=== PATIENT | female | born 1995 | race Caucasian/White ===

== ENCOUNTER 2018-12-24 15:46 | Inpatient (IN) ==
[2018-12-24] MEDS ORDERED: OXYTOCIN 20 UNITS in RINGER'S SOLUTION,LACTATED 1,000 ML IV ONE (16:18)
[2018-12-24] MEDS ORDERED: ceFAZolin SODIUM/DEXTROSE,ISO 2 GM/50 ML BAG IV ONE (16:18)
[2018-12-24] MEDS ORDERED: CALCIUM GLUCONATE 4.65 MEQ/10 ML VIAL IV PRN ×2 (16:18→19:00)
[2018-12-24] MEDS: RINGER'S SOLUTION,LACTATED 1,000 ML IV PRN ×2 (16:20→17:20)
[2018-12-24] MEDS ORDERED: LABETALOL HCL 5 MG/ML VIAL IV ONE ×2 (16:22→19:30)
[2018-12-24] MEDS ORDERED: LABETALOL HCL 5 MG/ML SYRINGE IV ONE (16:24)
[2018-12-24] MEDS: MAGNESIUM SULFATE IN WATER 50 ML, MAGNESIUM SULFATE IN WATER 50 ML IV ONE ×4 (16:29→16:53)
--- NOTE | 2018-12-24 16:52 | HP ---
Chief Complaint - Chief Complaint Date of Service: 12/24/18 Time of Service: 16:35 Chief Complaint: elevated BP History of Present Illness: 23 yo at 36 5/7 weeks admitted to L&D for primary c/s due to breech presentation and severe preeclampsia. Patient has had complaints of increased swelling, headaches, and epigastric pain the past couple days with normal BPs. Today at her OB office visit she no longer had a ABDULLAHI or epigastric pain, but did have elevated BPs. She was sent to L&D for further evaluation and tx. Her BPs here are in severe range and her Prot/Cr ratio was 3402. This complicated by breech presentation and induced HTN with severe features. Rh positive Rubella immune GBS negative Medical History (Last Reviewed 12/24/18 @ 16:44 by Evaristo Wong DO) No pertinent past medical history Surgical History: Surgical History (Last Reviewed 12/24/18 @ 16:44 by Evaristo Wong DO) No pertinent past surgical history Family History: Family History (Last Reviewed 12/24/18 @ 16:44 by Evaristo Wong DO) Aunt Cancer Bone cancer Father Hypertension Bipolar disorder Grandfather Heart disease Paternal Grandmother Cancer colon cancer Grandfather Cancer Maternal-throat cancer Mother Hyperlipemia Social History: Preferred Language Telugu Smoking Status Former smoker (Last Updated 12/24/18 @ 15:46 by Evaristo Wong DO) No Social History Section defined Review Of Systems (GEN) - Review of Systems Generalized/Overall Review: Present: No Symptoms Reported EENTM: Present: No Symptoms Reported Respiratory: Present: No Symptoms Reported Cardiac: Present: No Symptoms Reported Abdominal: Present: No Symptoms Reported Genitourinary: Present: No Symptoms Reported Musculoskeletal: Present: No Symptoms Reported Neurological: Present: No Symptoms Reported Skin: Present: No Symptoms Reported Endocrine: Present: No Symptoms Reported Allergies/Adverse Reactions: Allergies Allergy/AdvReac Type Severity Reaction Status Date / Time No Known Allergies Allergy Verified 12/24/18 16:02 Home Medications: HOME MEDICATIONS vitamin,calcium,srzdfhmg-tpal-scdsq acid tablet 1 tab PO DAILY 06/05/18 [Last Taken Unknown] calcium carbonate 500 mg calcium (1,250 mg) chewable tablet 500 mg PO TID tab 09/17/18 [Last Taken Unknown] ranitidine 150 mg tablet 150 mg PO DAILY 10/22/18 [Last Taken Unknown] Exam - Exam Vital Signs: Vital Signs - Last Taken Temp 36.9 C 12/24/18 16:12 Pulse 67 12/24/18 16:30 Resp 20 12/24/18 16:12 BP 160/102 H 12/24/18 16:30 Pulse Ox 100 12/24/18 16:12 Constitutional: Present: Alert, Oriented x3, Cooperative, No distress ENT Exam: Present: hearing grossly normal Breasts: Present: Exam deferred Respiratory: Present: lungs clear, no respiratory distress Cardiovascular/Chest: Present: regular rate, rhythm Abdomen: Present: soft, nontender, nondistended, no rebound tenderness, other - gravid /Rectal: Present: Exam deferred Extremity: Present: no calf tenderness, lower extremity edema Skin Exam: Present: normal color, warm/dry, no cyanosis Neurologic: Present: alert, normal mood/affect, oriented x 3, other - DTR 3+/4, 2 beat clonus Appearance: Present: appropriate appearance, appropriate insight, no memory impairment Eye contact: Present: cooperative, good eye contact, normal speech Thoughts: Present: normal thought pattern Diagnostic Studies: See computer. Unable to import into note. Assessment/Plan - Assessment/Plan (1) Breech presentation, no version Assessment: Admit for control of BP, seizure prophylaxis, and primary c/s. R/b/a to c/s discussed with patient and spouse. All questions answered. Will proceed with surgery. Problem: Acute Qualifiers: Fetus number: single or unspecified fetus Qualified Code(s): O32.1XX0 - Maternal care for breech presentation, not applicable or unspecified (2) Preeclampsia, severe Problem: Acute Qualifiers: Trimester: third trimester Qualified Code(s): O14.13 - Severe pre- eclampsia, third trimester
--- NOTE | 2018-12-24 17:03 | ANES ---
Anesthesia Pre Procedure Eval Vitals/Labs: Last Vital Signs Temp 36.9 C 12/24/18 16:12 Pulse 67 12/24/18 16:30 Resp 20 12/24/18 16:12 BP 160/102 H 12/24/18 16:30 Pulse Ox 100 12/24/18 16:12 HOME MEDICATIONS vitamin,calcium,zcaplnla-vece-dsthm acid tablet 1 tab PO DAILY 06/05/18 [Last Taken Unknown] calcium carbonate 500 mg calcium (1,250 mg) chewable tablet 500 mg PO TID tab 09/17/18 [Last Taken Unknown] ranitidine 150 mg tablet 150 mg PO DAILY 10/22/18 [Last Taken Unknown] Allergies/Adverse Reactions: Allergies Allergy/AdvReac Type Severity Reaction Status Date / Time No Known Allergies Allergy Verified 12/24/18 16:02 - Planned Procedure Planned Procedure: C/S Medication List Reviewed:: Yes Allergies Verified: Yes Medical History (Last Reviewed 12/24/18 @ 17:01 by Ascencion Elder CRNA) No pertinent past medical history Surgical History (Last Reviewed 12/24/18 @ 17:01 by Ascencion Elder CRNA) No pertinent past surgical history Family History (Last Reviewed 12/24/18 @ 17:01 by Ascencion Elder CRNA) Aunt Cancer Bone cancer Father Hypertension Bipolar disorder Grandfather Heart disease Paternal Grandmother Cancer colon cancer Grandfather Cancer Maternal-throat cancer Mother Hyperlipemia - Family Anesthesia History Family History:: no untoward family reactions to anesthesia, no familial bleeding tendencies, no family history of clotting disorders, no family history of premature - Airway/Neck/Teeth Within Normal Limits:: Yes Teeth Condition: intact Mallampatti Score: 2 Thyromental (T-M) distance: > 6 cm Mandibulo Hyoid distance: > 3 cm - Respiratory Respiratory Physical: lungs clear Smoking Status: Former smoker Discussed smoking cessation including day of surgery: No Sleep Apnea currently treated: No Sleep Apnea by current assessment: No Discussed Risks/Treatment of VERNON: No - Cardiovascular Tolerate Activity: Good Heart Sounds: S1 & S2, Regular - Anesthesia Assessment and Plan ASA Class: PS, II Anesthesia Type Plan: Block - Bilateral ultrasound guided TAP blocks for postop analgesia, Spinal
[2018-12-24] MEDS: MAGNESIUM SULFATE IN WATER 1,000 ML IV SCH ×3 (17:11→23:52)
[2018-12-24 18:37] LABS: Cocaine Ur Negative (NEGATIVE); Urine Barbiturate Negative (NEGATIVE); Urine Benzodiazepines Negative (NEGATIVE); Urine Opiates Negative (NEGATIVE); Urine PCP Negative (NEGATIVE); Urine THC Negative (NEGATIVE)
--- NOTE | 2018-12-24 18:42 | OR ---
Operative Report - Dictated Report Narrative: Indication: 23-year-old 1 para 0 at 36 5/7 weeks in breech presentation with severe preeclampsia declining external cephalic version. Status: Planned Pre Operative Diagnosis: 36 5/7 week intrauterine . Breech presentation. Severe preeclampsia. Post Operative Diagnosis: Same. Procedure Preformed: Primary Low Transverse Section Surgeon: Arthur Wong DO Orthopedic Physician Assistant: OR Staff Anesthesia: Spinal ,TAP block Estimated Blood Loss: 300 mL Urine Output: 250 mL Fluids Given: 900 mL Drains: Saez to gravity Surgical Complications: None Specimens: Placenta to pathology Findings: Male born at 1742 on 12/24/2016 with Apgars 9 and 9, weighing 2292 g in gato breech presentation. Normal uterus, tubes, ovaries. Technique: The patient was taken to the operating room and placed in dorsal supine position with a left lateral tilt. After adequate spinal anesthesia, saez catheter insertion,SCDs placed, and 2 g of Ancef given preoperatively, the abdominal cavity was entered via a modified Magdiel-Hood incision. Two rolled laps were placed in the pericolic gutters on either side of the uterus. A transverse incision was made in the lower uterine segment and extended laterally and upwardly with digital traction. Clear fluid was noted upon amniotomy. The infant's buttocks was delivered with gentle traction and rotation clockwise and counterclockwise to deliver each arm. Keeping the head flexed, it was delivered through the hysterotomy with some mild difficulty. The cord was clamped and cut and infant was handed off to awaiting entry level mechanical engineer. The placenta was allowed to deliver spontaneously. The uterus was cleared of clot and debris. Uterine incision was closed with 0 Vicryl using a running stitch. A second imbricating layer was placed. Excellent hemostasis was noted. Rolled laps were removed f rom the abdominal cavitiy. The peritoneum was closed with a running 3-0 Monocryl. The same suture was used to approximate the rectus and pyramidalis muscles. The fascia was closed with a running 0 Vicryl. The subcutaneous layer was closed with a running 3-0 Monocryl. The same suture was used to approximate the subdermal layer. The skin was closed with a running 4-0 Monocryl and Dermabond. Sponge, lap, needle, and instrument count were correct x 2. Disposition: The patient was transferred to post anesthesia care unit in good condition History for MU Definition: * The number of deliveries resulting in a live the patient experienced prior to current hospitalization * The previous delivery of live twins or any live multiple gestation is cons idered one live event. *If primagravida or nulliparous is documented select zero for the number of previous live births. Live Events: 0
--- NOTE | 2018-12-24 18:54 | ANES ---
Post Anesthesia Discharge - Transfer of Care Transfer of Care handoff given to nurse: Yes - Discharge from PACU Discharge from PACU when meets criteria: Yes - Discharge to ASU Discharge to ASU-no complications/pt stable: Yes
--- NOTE | 2018-12-24 18:58 | ANES ---
Anesthesia Procedure Note Procedure Note: ANESTHESIA PROCEDURE NOTE Date of Procedure: 12/24/2018. Time of procedure: 1835. Performed by: Ascencion Elder CRNA Vice President Marketing & Development: None. Preprocedure diagnosis:. Post procedure diagnosis: Same. Procedure: Bilateral ultrasound-guided transversus abdominis plane block for postop analgesia. Indications: The patient is a 23 -year-old female post section. Findings: See below. Details of the procedure: ChloraPrep was used on the patient's abdomen and the procedure was performed under sterile technique. The right abdominal fascial layer between the internal oblique muscle and the transversus abdominis muscles was identified under ultrasound guidance. A 21-gauge 4 inch block needle was inserted under ultrasound guidance to the target fascial plane. 15 mL's of 0.5% bupivacaine plus epinephrine 1:200,000 was injected after negative aspiration for blood. The needle was removed intact and the procedure was then repeated at the left side. No complications were noted. The images were retained in the hospital medical database . EBL: Minimal. Fluids: N/A. Specimen: N/A. Post procedure condition: The patient tolerated the procedure well. No complications were noted. Thank you for this consultation. Ascencion Elder CRNA
--- NOTE | 2018-12-24 18:58 | ANES ---
Post Anesthesia Assessment - Vital Signs Vitals: Last Vital Signs Temp 36.6 C 12/24/18 18:30 Pulse 62 12/24/18 18:45 Resp 12 12/24/18 18:45 BP 97/72 12/24/18 18:45 Pulse Ox 100 12/24/18 18:45 Airway Patency: Normal - Mental Status Level Of Consciousness: Awake - Pain Level Pain Score: 0 - N/V Assessment Nausea/Vomiting Presence: None Dehydration:: No
[2018-12-24] MEDS ORDERED: BISACODYL 10 MG SUPP.RECT RC PRN (19:00)
[2018-12-24] MEDS ORDERED: oxyCODONE HCL/ACETAMINOPHEN 1 TAB TABLET PO PRN (19:00)
[2018-12-24] MEDS ORDERED: SENNOSIDES 8.6 MG TABLET PO PRN (19:00)
[2018-12-24] MEDS ORDERED: ONDANSETRON HCL/PF 2 MG/ML VIAL IV PRN (19:00)
[2018-12-24] MEDS ORDERED: SIMETHICONE 80 MG TAB.CHEW PO PRN (19:00)
[2018-12-24] MEDS: LABETALOL HCL 100 MG TABLET PO SCH ×2 (19:51→23:51)
[2018-12-24] MEDS: DEXTROSE 5%-LACTATED RINGERS 1,000 ML IV PRN (20:00)
[2018-12-24] MEDS: IBUPROFEN 800 MG TABLET PO PRN (20:35)
[2018-12-24] MEDS: DOCUSATE SODIUM 100 MG CAPSULE PO SCH (20:35)
[2018-12-24] MEDS: oxyCODONE HCL/ACETAMINOPHEN 1 TAB TABLET PO PRN ×2 (20:35→23:37)
[2018-12-25] MEDS: ENOXAPARIN SODIUM 40 MG/0.4 ML SYRG SC SCH (03:36)
[2018-12-25] MEDS: IBUPROFEN 800 MG TABLET PO PRN ×3 (03:36→16:27)
[2018-12-25] MEDS: oxyCODONE HCL/ACETAMINOPHEN 1 TAB TABLET PO PRN ×6 (03:36→19:31)
[2018-12-25] MEDS: DEXTROSE 5%-LACTATED RINGERS 1,000 ML IV PRN (09:16)
[2018-12-25] MEDS: LABETALOL HCL 100 MG TABLET PO SCH ×2 (09:18→21:20)
[2018-12-25] MEDS: DOCUSATE SODIUM 100 MG CAPSULE PO SCH ×2 (09:18→21:21)
--- NOTE | 2018-12-25 10:04 | PN ---
Progess Note - Interim Date: 12/25/18 Time: 10: Narrative: 12/25/18 10:01 Patient denies complaints. Denies headache, visual changes, epigastric pain, nausea, or vomiting. Pain well controlled. Lochia wnl. I/Os about equal Abdomen - soft, appropriately tender Incision - clean, dry, intact Uterus - firm, at umbilicus -1 DTR-2+/4, no clonus. No calf tenderness Impression: Post op day #1 s/p primary section for breech presentation. Severe preeclampsia-resolving Plan: DC magnesium at 1800 tonight and increase activity.
[2018-12-25] MEDS: MAGNESIUM SULFATE IN WATER 1,000 ML IV SCH (14:03)
[2018-12-26] MEDS: oxyCODONE HCL/ACETAMINOPHEN 1 TAB TABLET PO PRN ×5 (00:27→19:06)
[2018-12-26] MEDS: ENOXAPARIN SODIUM 40 MG/0.4 ML SYRG SC SCH (03:15)
[2018-12-26] MEDS: IBUPROFEN 800 MG TABLET PO PRN ×3 (05:38→19:07)
[2018-12-26] MEDS: LABETALOL HCL 100 MG TABLET PO SCH ×2 (09:17→21:31)
[2018-12-26] MEDS: DOCUSATE SODIUM 100 MG CAPSULE PO SCH ×2 (09:18→21:31)
--- NOTE | 2018-12-26 11:18 | PN ---
Subjective - Date and Time Seen Date: 12/26/18 Time: 11:13 Objective - Vitals Vitals: Last Vital Signs Temp 36.8 C 12/26/18 08:30 Pulse 72 12/26/18 09:17 Resp 18 12/26/18 09:15 BP 139/93 H 12/26/18 09:17 Pulse Ox 99 12/26/18 08:30 Patient denies complaints - specifically denies headache, visual changes or epigastric pain. Ambulating well. Tolerating regular diet. Pain well controlled. Lochia wnl. Diuresing well Heart regular rate and rhythm Lungs clear to auscultation bilaterally Abdomen - soft, appropriately tender Incision - clean, dry, intact Uterus - firm, at umbilicus -2 DTR-4/4 with 3 beat clonus, No calf tenderness Impression: Post op day #2 s/p primary section. Severe preeclampsia- diuresing well but still with significant hyperreflexia Plan: Continue routine post-operative/ care. Will recheck CBC and CMP. If neurologic symptoms worsen or persist we'll consider restarting magnesium and seizure precautions. Cauti Physician Documentation - Urinary Catheter Management Urethral (Rowe) Date of Insertion: 12/24/18 Time of Insertion: 16:35 Date of Removal: 12/25/18 Time of Removal: 22:10 Assessment/Plan - Problems/Diagnosis (1) Breech presentation, no version Problem: Acute Qualifiers: Fetus number: single or unspecified fetus Qualified Code(s): O32.1XX0 - Maternal care for breech presentation, not applicable or unspecified (2) Preeclampsia, severe Problem: Acute Qualifiers: Trimester: third trimester Qualified Code(s): O14.13 - Severe pre- eclampsia, third trimester
[2018-12-26 11:51] LABS: Hematocrit 29.7 % (37.0-47.0); Hemoglobin 9.5 gm/dL (12.5-16.0); Mean Cell Volume 90.8 fl (78-100); Mean Corpuscular Hemoglobin 29.1 pg (27-31); Mean Platelet Volume 9.4 fl (8-12.5); Platelet Count 178 K/mm3 (150-450); Red Blood Count 3.27 M/mm3 (4.2-5.4); Red Cell Distribution Width 12.6 % (11.5-14.0); White Blood Count 9.5 K/mm3 (4.0-10.5)
[2018-12-26 12:09] LABS: Anion Gap 10.2 mmol/L (6.8-13.8); BUN/Creatinine Ratio 12.3 (9.0-21.6); Bilirubin, Total 0.2 mg/dL (0.0-1.1); Ca. Corrected For Albumin 8.3 mg/dL (8.4-10.2); Carbon Dioxide 26.9 mmol/L (24-32.6); Potassium 5.1 mmol/L (3.4-4.6); Total Protein 5.2 gm/dL (6.2-8.2)
[2018-12-27] MEDS: oxyCODONE HCL/ACETAMINOPHEN 1 TAB TABLET PO PRN ×3 (00:37→20:43)
[2018-12-27] MEDS: ENOXAPARIN SODIUM 40 MG/0.4 ML SYRG SC SCH (05:04)
[2018-12-27] MEDS: IBUPROFEN 800 MG TABLET PO PRN ×2 (05:07→20:43)
[2018-12-27] MEDS: LABETALOL HCL 100 MG TABLET PO SCH ×2 (07:46→09:36)
[2018-12-27] MEDS: DOCUSATE SODIUM 100 MG CAPSULE PO SCH ×3 (07:46→20:43)
[2018-12-27] MEDS ORDERED: LABETALOL HCL 100 MG TABLET PO ONE (09:30)
--- NOTE | 2018-12-27 09:37 | PN ---
Subjective - Date and Time Seen Date: 12/27/18 Time: 09:29 Objective - Vitals Vitals: Last Vital Signs Temp 36.6 C 12/27/18 07:53 Pulse 60 12/27/18 07:53 Resp 18 12/27/18 07:53 BP 160/96 H 12/27/18 07:53 Pulse Ox 98 12/27/18 07:53 Patient denies complaints - denies headaches, visual changes, epigastric pain. Ambulating without difficulty. Tolerating regular diet. Pain well controlled. Blood pressures creeping up, a few in the severe range. I/Os 700/4250, wt 58.1kg (decreased >2kg) Lochia wnl. Abdomen - soft, appropriately tender Incision - clean, dry, intact Uterus - firm, at umbilicus -3 DTR 3-4/4, 2 beat clonus. No calf tenderness. 2+ pedal edema, 1+ in lower extremities Impression: Post op day #3 s/p primary section. Preeclampsia-blood pressures increasing to the severe range. Plan: We'll increase labetalol to 200 mg twice a day. If blood pressures do not come down will consider restarting magnesium and putting on seizure precautions. - Abnormal Lab Findings Abnormal Lab Findings: Abnormal Lab Results 12/26/18 12/26/18 Range/Units 11:46 11:46 RBC 3.27 L (4.2-5.4) M/mm3 Hgb 9.5 L (12.5-16.0) gm/dL Hct 29.7 L (37.0-47.0) % Lymphocytes % 19.7 L (20-51) % Neutrophils # 7.0 H (1.3-6.0) K/mm3 Potassium 5.1 H (3.4-4.6) mmol/L Calcium 7.0 L (7.9-10.9) mg/dL Calcium Adj for Albumin 8.3 L (8.4-10.2) mg/dL Alkaline Phosphatase 182 H (50-170) U/L Total Protein 5.2 L (6.2-8.2) gm/dL Albumin 2.0 L (3.4-5.0) gm/dl Cauti Physician Documentation - Urinary Catheter Management Urethral (Rowe) Date of Insertion: 12/24/18 Time of Insertion: 16:35 Date of Removal: 12/25/18 Time of Removal: 22:10 Assessment/Plan - Problems/Diagnosis (1) Breech presentation, no version Problem: Acute Qualifiers: Fetus number: single or unspecified fetus Qualified Code(s): O32.1XX0 - Maternal care for breech presentation, not applicable or unspecified (2) Preeclampsia, severe Problem: Acute Qualifiers: Trimester: third trimester Qualified Code(s): O14.13 - Severe pre- eclampsia, third trimester
[2018-12-27] MEDS ORDERED: LABETALOL HCL 100 MG TABLET ONE (20:41)
[2018-12-27] MEDS: LABETALOL HCL 200 MG TABLET PO SCH (20:45)
[2018-12-28] MEDS: ENOXAPARIN SODIUM 40 MG/0.4 ML SYRG SC SCH (03:44)
[2018-12-28] MEDS: LABETALOL HCL 200 MG TABLET PO SCH ×2 (08:04→22:51)
[2018-12-28] MEDS: IBUPROFEN 800 MG TABLET PO PRN ×2 (08:05→22:40)
[2018-12-28] MEDS: DOCUSATE SODIUM 100 MG CAPSULE PO SCH ×2 (08:05→22:40)
--- NOTE | 2018-12-28 09:33 | PN ---
Subjective - Date and Time Seen Date: 12/28/18 Time: 09:31 Objective - Vitals Vitals: Last Vital Signs Temp 37.3 C 12/28/18 07:58 Pulse 70 12/28/18 08:04 Resp 16 12/28/18 07:58 BP 159/92 H 12/28/18 08:04 Pulse Ox 99 12/28/18 07:58 Patient denies complaints. Ambulating without difficulty. Tolerating regular diet. Pain well controlled. Lochia wnl. Abdomen - soft, appropriately tender Incision - clean, dry, intact Uterus - firm, at umbilicus -3 DTR-3/4, 3 beat clonus. 1+ pitting edema in lower extremities. No calf tenderness Impression: Post op day #4 s/p primary section for breech presentation. Preeclampsia with severe features, persistent elevated blood pressures and hyperreflexia Plan: Routine discharge instructions with the addition of preeclampsia precautions. Follow-up for blood pressure check in 3-4 days. Cauti Physician Documentation - Urinary Catheter Management Urethral (Rowe) Date of Insertion: 12/24/18 Time of Insertion: 16:35 Date of Removal: 12/25/18 Time of Removal: 22:10 Assessment/Plan - Problems/Diagnosis (1) Breech presentation, no version Problem: Acute Qualifiers: Fetus number: single or unspecified fetus Qualified Code(s): O32.1XX0 - Maternal care for breech presentation, not applicable or unspecified (2) Preeclampsia, severe Problem: Acute Qualifiers: Trimester: third trimester Qualified Code(s): O14.13 - Severe pre- eclampsia, third trimester
[2018-12-28] MEDS: oxyCODONE HCL/ACETAMINOPHEN 1 TAB TABLET PO PRN (22:40)
[2018-12-28] MEDS ORDERED: LABETALOL HCL 100 MG TABLET ONE (22:49)
[2018-12-28 22:53] VITALS: BP 126/93
== END 2018-12-28 23:50 | disposition home or self-care (01) | DRG 788 ==
LOC: OB 15:46
PROVIDERS: ADMIT Obstetrics & Gynecology; ATTEND Obstetrics & Gynecology
CPT/HCPCS: 36415; 59025; 80053; 80307; 85025; 88307